=== PATIENT | female | born 1960 | race Caucasian/White ===

== ENCOUNTER 2021-10-28 10:01 | Day surgery (SDC) | payer OTHER ==
[~2021-10-28] VITALS: Ht 162.6 cm; Wt 79.1 kg
[~2021-10-28 10:01] MED LIST: BIOTIN1 MG PO; CALCIUM500 M1; CANDICIDAL CAP1 EACH PO; CITRACAL + D M1 EACH PO; GLUCOSAMIN-CHO1 EACH PO; LORATADINE10 MG PO; NITROFURANTOIN100 MG PO; VITAMIN D350 MC3 PO
--- NOTE | 2021-10-28 12:18 | NUR ---
10/28/21 1218 Cordelia Milner 1210 PATIENT ARRIVES TO PACU SLEEPING. FREQUENT APENIC PERIODS, FOLLOW COMMAND TO TAKE DEEP BREATHS. NC AT 6 LITERS ON ARRIVAL DECREASED TO 3 LITERS. 1215 PATIENT HAVING PERIODS OF APNEA, AWAKENS WITH VERBAL STIMULI AND TAKES DEEP BREATHS. RESP EVEN AND UNLABORED, NC AT 3 LITERS, SNORING AT TIMES. PATIENT REPOSITIONS SELF TO BACK. HOB ELEVATED. BREATHING IMPROVED.
--- NOTE | 2021-10-28 13:28 | NUR ---
PATIENT BACK IN DAY SURGERY ROOM FROM PACU. PATIENT DROWSY. VS CHECKED. SALINE LOCK IN PLACE. PATIENT ON NASAL CANNULA TO MAINTAIN O2 SATS. CALL LIGHT WITHIN REACH. LIGHTS DIMMED SO PATIENT CAN SLEEP.
--- NOTE | 2021-10-28 14:42 | NUR ---
1400: CHECKED PATIENT. O2 SAT 99% ON 2 L. O2 TURNED OFF. PATIENT ON ROOM AIR. 1410: PATIENT'S O2 SAT 94% ON ROOM AIR. PATIENT STATES READY TO GO HOME. PATIENT GIVEN DISCHARGE INSTRUCTIONS. 1420: PATIENT ASSISTED OOB AND TO STAND. GAIT STEADY. PATIENT GETTING DRESSED INDEPENDENTLY. 1428: PATIENT DRESSED. IV DC'D WNL. TIP INTACT. DRESSING APPLIED. PATIENT DISCHARGED TO HOME VIA WHEELCHAIR WITH .
--- NOTE | 2021-10-30 11:00 | OR ---
[facility] [address], [place] [address] Signed DATE OF OPERATION: 10/28/2021 SURGEON: Kaya Waldron MD PREOPERATIVE DIAGNOSES: 1. History of diverticulosis. 2. Colon screening. POSTOPERATIVE DIAGNOSES: Sigmoid and left-sided diverticulosis. No evidence of polyps. PROCEDURE: Total colonoscopy to cecum. ANESTHESIA: Intravenous sedation, fentanyl 100 mcg and Versed 5 mg. INDICATIONS: This 61-year-old white woman is referred by Dr. Angella Whipple for screening colonoscopy. She last underwent colonoscopy in 2010 showing only diverticulosis. She has no symptoms of bleeding, diarrhea, or constipation and no family history of colon cancer. She additionally sees Dr. Tee, her primary provider. She is admitted at this time to undergo colonoscopy and understands the risks of bleeding, infection, and perforation. FINDINGS: The prep was excellent. Complete colonoscopy was undertaken to the cecum without question. She did have dense diverticular changes in the sigmoid. Passage to the area was slightly challenging, but without complication. Complete colonoscopy was undertaken to the cecum without question. She had no polyps, only diverticulosis. DESCRIPTION OF PROCEDURE: The patient was brought to the endoscopy suite and placed in lateral decubitus position given intravenous sedation to the point of slurred speech and nystagmus. Digital rectal examination was normal. An Olympus video colonoscope was passed into the rectum and manipulated into the sigmoid, where a dense diverticular changes were noted. Various manipulations were used to pass through this area, ultimately beyond it and ultimately to the cecum. The ileocecal valve and appendiceal orifice were well identified and photographed. The Electronically Signed By: KAYA WALDRON MD 10/30/21 1100 PATIENT NAME: DELORES CLIFFORD OPERATIVE REPORT DATE OF : 58 REPORT #: [id number] PHYSICIAN: KAYA WALDRON MD PCP: KEYON TEE MD REPORT IS CONFIDENTIAL AND NOT TO BE RELEASED WITHOUT AUTHORIZATION [facility] [address], [place] [address] Signed scope was then withdrawn and examination throughout showed no sign of polyps or colitis only diverticular changes throughout, most densely in the sigmoid. Retroflexed view of the rectum was normal. Scope was removed. The patient was taken to the recovery room in good condition. CONCLUDING DIAGNOSIS: Diverticulosis. PLAN: Recommend high-fiber diet and repeat colonoscopy in 10 years or sooner if clinically indicated. She will return to the ongoing care of Dr. Tee and Dr. Whipple. MD ESAU Chris/MARKELL /[id number] cc: MD Keyon Tucker MD Copies: ANGELLA WHIPPLE MD, MALCOLM MD ~ Electronically Signed By: KAYA WALDRON MD 10/30/21 1100 PATIENT NAME: DELORES CLIFFORD OPERATIVE REPORT DATE OF : 58 REPORT #: [id number] PHYSICIAN: KAYA WALDRON MD PCP: KEYON TEE MD REPORT IS CONFIDENTIAL AND NOT TO BE RELEASED WITHOUT AUTHORIZATION
== END 2021-10-28 14:28 | disposition home or self-care (01) ==
LOC: OPS 10:01 → DS 10:06 → OPS 11:00 → DS 14:00 → OPS 14:28
PROVIDERS: ATTEND Surgery
PROC: 0DJD8ZZ Inspection of Lower Intestinal Tract, Via Natural or Artificial Opening Endoscopic (ICD-10-PCS; principal; 2021-10-28 12:15)
DX: Z12.11 Encounter for screening for malignant neoplasm of colon (principal); K57.30 Diverticulosis of large intestine without perforation or abscess without bleeding; Z96.659 Presence of unspecified artificial knee joint; Z88.0 Allergy status to penicillin; Z88.8 Allergy status to other drugs, medicaments and biological substances; Z88.1 Allergy status to other antibiotic agents; Z91.011 Allergy to milk products
CPT/HCPCS: 99153; G0500; J2250; J3010; J7121

== ENCOUNTER 2024-02-05 18:05 | Emergency (ER) | payer OTHER ==
[~2024-02-05] VITALS: Ht 162.6 cm; Wt 79.8 kg
[2024-02-05] MEDS ORDERED: ondansetron HCL 4 MG/2 ML VIAL IV PRN (18:30)
[2024-02-05 18:35] LABS: BASOPHILS 0.9 % (0-2); HEMATOCRIT 41.1 % (35.0-50.0); HEMOGLOBIN 13.2 g/dL (12.0-18.0); MCH 29.6 (27-36); MCHC 32.2 g/dl (30-36); MONOCYTES 6.3 % (0-12); NEUTROPHILS 65.8 % (39-80); PLATELET COUNT 207 K/uL (140-440); RBC 4.47 M/ul (4.3-5.7); RDW 13.7 (10.5-15.0)
[2024-02-05] MEDS ORDERED: SODIUM CHLORIDE 0.9% 1,000 ML IV PRN (18:45)
[2024-02-05 18:50] LABS: ALBUMIN 3.9 g/dL (3.4-5.0); ALBUMIN/GLOBULIN RATIO 1.15 (1.1-2.4); ANION GAP 12.5 (7-21); BILIRUBIN, TOTAL 0.4 ng/dL (0.2-1.0); BUN/CREATININE RATIO 18.94 (6.0-28.6); CALCIUM 9.1 mg/dL (8.5-10.1); CREATININE, SERUM 0.95 mg/dL (0.55-1.02); POTASSIUM 3.5 mmol/L (3.5-5.1); PROTEIN, TOTAL 7.3 g/dL (6.4-8.2)
[2024-02-05] MEDS ORDERED: KETOROLAC TROMETHAMINE 15 MG/ML VIAL IV ONE (19:00)
[2024-02-05] MEDS ORDERED: ondansetron HCL 4 MG/2 ML VIAL IV ONE (19:00)
[2024-02-05] MEDS ORDERED: droPERidol 5 MG/2 ML VIAL IV ONE (19:15)
[2024-02-05 20:20] LABS: BILIRUBIN, URINE NEGATIVE (negative); BLOOD/HGB, URINE TRACE-I (Negative); KETONE, URINE TRACE (Negative); LEUK ESTERASE, URINE NEGATIVE (negative); NITRITE, URINE NEGATIVE (negative); PH, URINE 5.5 (5-7)
[2024-02-05 20:28] LABS: CRYSTALS, URINE NONE SEEN (0-1+); EPITHELIAL CELLS, URINE SQUAMOUS 1+ /lpf (0-1+)
[2024-02-05 20:29] LABS: BACTERIA, URINE 1+ /hpf (negative); CASTS, URINE HYALINE 1+ \\lpf; COLLECTION TYPE, URINE CLEAN CATCH; REFLEX CULTURE, URINE Yes (No)
[2024-02-05] MEDS ORDERED: ONDANSETRON ODT8 MG PO (20:43)
[2024-02-05] MEDS ORDERED: KETOROLAC TROME10 MG PO (20:43)
[2024-02-05] MEDS ORDERED: FLOMAX0.4 MG PO (20:43)
[2024-02-05] MEDS ORDERED: PERCOCET 5-3251 EACH PO (20:43)
[2024-02-05] MEDS ORDERED: MACROBID 100 M100 MG PO (20:45)
[2024-02-05] MEDS ORDERED: TAMSULOSIN HCL 0.4 MG CAP PO ONE (21:00)
[2024-02-05] MEDS ORDERED: OXYCODONE/ACETAMINOPHEN 1 TAB HOME.PACK PO ONE (21:00)
[2024-02-05] MEDS ORDERED: PROMETHAZINE HCL 25 MG SUPP. HOME.PACK PR ONE (21:00)
[2024-02-05] MEDS ORDERED: NITROFURANTOIN MONOHYD MACROCR 100 MG HOME.PACK PO ONE (21:00)
[2024-02-05] MEDS ORDERED: ONDANSETRON 4 MG HOME.PACK SL ONE (21:00)
[2024-02-05 21:13] VITALS: BP 109/61
== END 2024-02-05 21:20 | disposition home or self-care (01) ==
LOC: ED 18:05
PROVIDERS: Emergency Medicine
DX: N13.2 Hydronephrosis with renal and ureteral calculous obstruction (principal); K57.30 Diverticulosis of large intestine without perforation or abscess without bleeding; E73.9 Lactose intolerance, unspecified; Z88.0 Allergy status to penicillin; Z88.1 Allergy status to other antibiotic agents; Z79.899 Other long term (current) drug therapy
CPT/HCPCS: 36415; 74176; 80053; 81001; 85025; 87088; 96361; 96374; 96375; 99284-25; A9270; J1790; J1885; J2405; J7030